=== PATIENT | male | born 1980 | race Caucasian/White ===

== ENCOUNTER 2022-10-30 07:40 | Outpatient (CLI) | payer OTHER, SELFPAY ==
[2022-10-30 10:36] LABS: Chloride* 104 mmol/L (96-114)
[2022-10-30 10:37] LABS: Albumin* 4.4 g/dL (3.3-5.0); Sodium* 139 mmol/L (135-149)
[2022-10-30 10:38] LABS: Potassium* 4.2 mmol/L (3.6-5.1)
[2022-10-30 10:40] LABS: Alanine Aminotransferase* 36 U/L (4-50); Alkaline Phosphatase* 72 U/L (40-150); Aspartate Amino Transferase* 30 U/L (12-35); Bilirubin Total* 0.8 mg/dL (0.1-1.5); Blood Urea Nitrogen* 15 mg/dL (5-24); Calcium* 9.2 mg/dL (8.4-10.6); Carbon Dioxide* 28 mmol/L (20-32); Cholesterol* 233 mg/dL (90-199); Creatinine* 0.9 mg/dL (0.5-1.5); Estimated Glomerular Filt Rate 109 ml/min; Glucose* 97 mg/dL (60-115); Total Protein* 7.1 g/dL (6.0-8.3); Triglycerides* 137 mg/dL (40-149)
[2022-10-30 10:41] LABS: HDL Cholesterol* 63 mg/dL (>=40); LDL Cholesterol Calculated 143 mg/dL (<100)
== END 2022-10-30 07:41 | disposition home or self-care (01) ==
LOC: NFLDREF 07:40
PROVIDERS: PCP Family Medicine; Visit Provider Family Medicine
DX: E78.5 Hyperlipidemia, unspecified (principal)
CPT/HCPCS: 80053; 80061

== ENCOUNTER 2023-04-01 10:05 | Outpatient (CLI) | payer OTHER, SELFPAY ==
--- NOTE | 2023-05-27 11:53 | PC.SOCIAL ---
Referral for Social work; Received social work referral from Janine James APRN at [facility]. Left message for provider to clarify referral. Provider not in today. Notes state that patient requests therapist listing. Contacted patient by phone and he confirmed that he would like listing of mental health providers for [facility]. Patient requested this be sent to him via his e-mail [email or web address]. Secure listing was e-mailed to patient. Patient had no other questions and will contact social work if needed. Social work to follow up as needed.
== END 2023-04-01 10:06 | disposition home or self-care (01) ==
LOC: NFLDREF 04-02 07:36
PROVIDERS: PCP Family Medicine; Referring Provider Family Medicine; Visit Provider Nurse Practitioner Family
DX: Z79.899 Other long term (current) drug therapy (principal)
CPT/HCPCS: 82306

== ENCOUNTER 2024-02-26 08:01 | Outpatient (CLI) | payer OTHER, SELFPAY ==
--- OUTSIDE RECORDS SUMMARY | 2024-02-29 20:57 | XMS_ITS | Clinical Summary ---
Author Organization [facility] Address [address], [place] [address] Care Team Providers Care Marionette Performer Name Role Phone Magadlena Nicole Ivana SCHAEFFER Primary Care Provider Source Comments You are receiving this document as you are listed as the primary care provider,follow-up provider, or the patient has been referred to you for consultation.This is in compliance with the Medicare and[facility] EHR Incentive Program,which states Providers who transition their patient to another setting of careor provider of care or refers their patient to another provider of care shouldprovide summary care record for each transition of care or referral. [facility] Allergies No known active allergies Medications Medication Sig Dispensed Refills Start Date End Date Status aspirin 325 MG tablet Take 650 mg by mouth once. Active Social History Tobacco Use Types Packs/Day Years Used Date Smoking Tobacco: Never Alcohol Use Standard Drinks/Week Comments Yes 0 (1 standard drink = 0.6 oz pur e alcohol) Sex and Gender Information Value Date Recorded Sex Assigned at Not on file Gender Identity Not on file Sexual Orientation Not on file Last Filed Vital Signs Vital Sign Reading Time Taken Comments Blood Pressure 114/73 10/28/2018 6:00 PM FILAMENT SHAPER Pulse 78 10/28/2018 6:15 PM FILAMENT SHAPER Temperature 36.7 ??C (98.1 ??F) 10/28/2018 5:00 PM CS T Respiratory Rate 13 10/28/2018 6:15 PM FILAMENT SHAPER Oxygen Saturation 96% 10/28/2018 6:15 PM FILAMENT SHAPER Inhaled Oxygen Concentration - - Weight - - Height - - Body Mass Index - - Plan of Treatment Health Maintenance Due Date Last Done Comments Hep C Screening (Preventive Services) 1979 HIV Screening (Preventive Services) 1995 Adult Preventive Visit 1997 HepB (1) 1998 Cholesterol 2014 DTaP/Tdap/Td (2 - Tdap) 03/11/2022 03/11/2012 COVID-19 Vaccine (3 - season) 2023 01/04/2021, 12/14/2020 Influenza (Season Ended) 2024 020, 08/10/2019, 08/18/2018, Additional history exists Zoster/Shingles (1 of 2) 2029 HPV Vaccine Aged Out No longer eligi ble based on patient's age to complete this topic HepA Aged Out No longer eligi ble based on patient's age to complete this topic Hib Aged Out No longer eligi ble based on patient's age to complete this topic IPV (Polio) Aged Out No longer eligi ble based on patient's age to complete this topic MCV4 Aged Out No longer eligi ble based on patient's age to complete this topic Pneumococcal Aged Out No longer eligi ble based on patient's age to complete this topic Care Teams Marionette Performer Relationship Specialty Start Date End Date Magdalena Nicole DO [address] [place] [address] PCP - General Family Practice 10/28/18
--- OUTSIDE RECORDS SUMMARY | 2024-02-29 20:57 | XMS_ITS | Clinical Summary ---
Author Organization [facility] Address [place], [place] [address] Care Team Providers Care Telecom Network Manager Name Role Phone Juan Yen MD Primary Care Provider [phone] Allergies No known active allergies Medications Medication Sig Dispensed Refills Start Date End Date Status escitalopram oxalate (LEXAPRO) 10 mg tablet 10/03/2021 Active Active Problems No known active problems Immunizations Name Administration Dates Next Due AMB Influenza, IIV4 PF (=>6 mos Flulaval,Fluzone Fluarix)(Flu Clinic Only) 08/10/2019,08/18/2018 COVID-19 vaccine ([employer] [facility] 30mcg/0.3mL) P KAY Gibson 08/20/2021 Influenza, IIV4 08/12/2017 Tdap 03/11/2012 Social History Tobacco Use Types Packs/Day Years Used Date Smoking Tobacco: Never Smokeless Tobacco: Never Tobacco Cessation:Counseling Given: Yes Alcohol Use Standard Drinks/Week Comments Yes 5 (1 standard drink = 0.6 oz pur e alcohol) PHQ-2 Answer Date Recorded PHQ-2 Score 0 11/16/2018 Social Connections Answer Date Recorded Frequency of Communication with Friends and Fami ly Not on file 10/29/2021 Financial Resource Strain Answer Date R ecorded Difficulty of Paying Living Expenses Not on file 10/29/2021 Difficulty of Paying Living Expenses Not on file 10/29/2021 Sex and Gender Information Value Date Recorded Sex Assigned at Not on file Gender Identity Not on file Sexual Orientation Not on file Obstetrics History Last Filed Vital Signs Vital Sign Reading Time Taken Comments Blood Pressure 108/72 10/29/2021 2:38 PM DIRECTOR REVENUE Pulse 74 10/29/2021 2:38 PM DIRECTOR REVENUE Temperature 39 ??C (102.2 ??F) 02/09/2019 4:16 PM CDT Respiratory Rate - - Oxygen Saturation 97% 10/29/2021 2:38 PM DIRECTOR REVENUE Inhaled Oxygen Concentration - - Weight 98.7 kg (217 lb 9.6 oz) 02/09/2019 4:16 P M CDT Height 182.9 cm (6') 02/09/2019 4:16 PM CDT Body Mass Index 29.51 02/09/2019 4:16 PM CDT Plan of Treatment Health Maintenance Due Date Last Done Comments HIV for age 15-65 1994 Hepatitis C screening for age 18-79 1997 Lipids for age 35-44 2014 Depression screening for age 12+ 04/20/2019 04/20/2018, 10/12/2015 BMI (ht and wt on same day) for age 18+ 02/10/2020 02/09/2019, 12/15/2016, 03/18/2016, Additional history exists Tetanus booster 03/11/2022 03/11/2012, 03/11/2012 COVID-19 vaccine series ( season) 2023 08/20/2021, 01/04/2021, 12/14/2020 Influenza for age 9-49 05/15/2024 9, 08/18/2018, 08/12/2017 Tdap Completed 03/11/2012 Pneumococcal series for age 6-64 Aged Out No longer eligible based on patient's age to complete this topic Care Teams Telecom Network Manager Relationship Specialty Start Date End Date Juan Yen MD [address] [place] [address] PCP - General Family Practice 10/29/21
== END 2024-02-26 08:02 | disposition home or self-care (01) ==
LOC: NFLDREF 02-29 20:56
PROVIDERS: PCP Family Medicine; Referring Provider Family Medicine; Visit Provider Family Medicine
DX: E78.5 Hyperlipidemia, unspecified (principal); E55.9 Vitamin D deficiency, unspecified; Z13.228 Encounter for screening for other metabolic disorders
CPT/HCPCS: 80053; 80061; 82306

== ENCOUNTER 2024-03-02 09:27 | Outpatient (CLI) | payer OTHER, SELFPAY ==
--- OUTSIDE RECORDS SUMMARY | 2024-03-02 09:30 | XMS_ITS | Clinical Summary ---
Author Organization [facility] Address [place], [place] [address] Care Team Providers Care Industrial Electrician Name Role Phone Juan Yen MD Primary Care Provider [phone] Allergies No known active allergies Medications Medication Sig Dispensed Refills Start Date End Date Status escitalopram oxalate (LEXAPRO) 10 mg tablet 10/03/2021 Active Active Problems No known active problems Immunizations Name Administration Dates Next Due AMB Influenza, IIV4 PF (=>6 mos Flulaval,Fluzone Fluarix)(Flu Clinic Only) 08/10/2019,08/18/2018 COVID-19 vaccine ([employer] 30mcg/0.3mL) P KAY Gibson 08/20/2021 Influenza, IIV4 [...] Comments Blood Pressure 108/72 10/29/2021 2:38 PM GENERATOR REBUILDER Pulse 74 10/29/2021 2:38 PM GENERATOR REBUILDER Temperature 39 ??C (102.2 ??F) 02/09/2019 4:16 PM CDT Respiratory Rate - - Oxygen Saturation 97% 10/29/2021 2:38 PM GENERATOR REBUILDER Inhaled Oxygen Concentration - - Weight 98.7 [...] age to complete this topic Care Teams Industrial Electrician Relationship Specialty Start Date End Date Juan Yen MD [address] [place] [address] PCP - General Family Practice 10/29/21
--- OUTSIDE RECORDS SUMMARY | 2024-03-02 09:30 | XMS_ITS | Clinical Summary ---
Author Organization [facility] Address [address], [place] [address] Care Team Providers Care Toy Department Manager Name Role Phone Magdalena Nicole Ivana SCHAEFFER Primary Care Provider Source Comments You are receiving this document as you are listed as the primary care provider,follow-up provider, or the patient has been referred to you for consultation.This is in compliance with the Medicare and[facility] EHR Incentive Program,which states Providers who transition their patient to another setting of careor provider of care or refers their patient to another provider of care shouldprovide summary care record for each transition of care or referral. [facility] Allergies No known active allergies Medications Medication [...] Comments Blood Pressure 114/73 10/28/2018 6:00 PM SEWING MACHINE ATTACHMENT TESTER Pulse 78 10/28/2018 6:15 PM SEWING MACHINE ATTACHMENT TESTER Temperature 36.7 ??C (98.1 ??F) 10/28/2018 5:00 PM CS T Respiratory Rate 13 10/28/2018 6:15 PM SEWING MACHINE ATTACHMENT TESTER Oxygen Saturation 96% 10/28/2018 6:15 PM SEWING MACHINE ATTACHMENT TESTER Inhaled Oxygen Concentration - - Weight - [...] age to complete this topic Care Teams Toy Department Manager Relationship Specialty Start Date End Date Magdalena Nicole DO [address] [place] [address] PCP - General Family Practice 10/28/18
== END 2024-03-02 09:28 | disposition home or self-care (01) ==
LOC: NFLDREF 09:28
PROVIDERS: PCP Family Medicine; Visit Provider Family Medicine
DX: R53.83 Other fatigue (principal)
CPT/HCPCS: 84443

== ENCOUNTER 2025-06-09 08:22 | Outpatient (CLI) | payer MEDICAID, SELFPAY | END 2025-06-09 08:23 | disposition home or self-care (01) | LOC: NFLDREF 06-12 07:46 | PROVIDERS: PCP Family Medicine; Referring Provider Family Medicine; Visit Provider Family Medicine | DX: E78.5 Hyperlipidemia, unspecified (principal); R53.83 Other fatigue; E55.9 Vitamin D deficiency, unspecified; F41.9 Anxiety disorder, unspecified; F32.9 Major depressive disorder, single episode, unspecified; Z79.899 Other long term (current) drug therapy; Z13.9 Encounter for screening, unspecified; Z13.1 Encounter for screening for diabetes mellitus | CPT/HCPCS: 80053; 80061; 82306; 84443 ==

== ENCOUNTER 2025-07-10 12:06 | Outpatient (CLI) | payer MEDICAID, SELFPAY ==
--- NOTE | 2025-07-10 13:25 | P.ANES_ITS ---
Anesthesia Charges Start Date/Time Anesthesia Start Date: 07/10/25 Anesthesia Start Time: 12:57 Stop Date/Time Anesthesia Stop Date: 07/10/25 Anesthesia Stop Time: 13:21 Coding CPT Codes CPT Codes: ANES LWR INTST NDSC NOS - [id number] ([id number]) P3 - PATIENT W/SEVERE SYS DISEASE, QK - CATERING DRIVER 2-4 CNCRNT ANES PROC, QX - BURNER TENDER SVC W/ MD MED DIRECTION
--- NOTE | 2025-07-10 13:25 | W.ANESCHARGE ---
Anesthesia Charges Start Date/Time Anesthesia Start Date: 07/10/25 Anesthesia Start Time: 12:57 Stop Date/Time Anesthesia Stop Date: 07/10/25 Anesthesia Stop Time: 13:21 Coding CPT Codes CPT Codes: ANES LWR INTST NDSC NOS - [id number] ([id number]) P3 - PATIENT W/SEVERE SYS DISEASE, QK - MANAGER BUSINESS INTELLIGENCE 2-4 CNCRNT ANES PROC, QX - APPEALS REPRESENTATIVE SVC W/ MD MED DIRECTION
--- NOTE | 2025-07-10 14:11 | P.ANES_ITS ---
Anesthesia Charges Start Date/Time Anesthesia Start Date: 07/10/25 Anesthesia Start Time: 12:57 Stop Date/Time Anesthesia Stop Date: 07/10/25 Anesthesia Stop Time: 13:21 Coding CPT Codes CPT Codes: ANES LWR INTST NDSC NOS - [id number] ([id number]) QK - WEIGH MACHINE OPERATOR 2-4 CNCRNT ANES PROC, QX - PRICING ACTUARY SVC W/ MED DIRECTION, P3 - PATIENT W/SEVERE SYS DISEASE
--- NOTE | 2025-07-10 14:11 | W.ANESCHARGE ---
Anesthesia Charges Start Date/Time Anesthesia Start Date: 07/10/25 Anesthesia Start Time: 12:57 Stop Date/Time Anesthesia Stop Date: 07/10/25 Anesthesia Stop Time: 13:21 Coding CPT Codes CPT Codes: ANES LWR INTST NDSC NOS - [id number] ([id number]) QK - CANAL EQUIPMENT MECHANIC 2-4 CNCRNT ANES PROC, QX - WARD SERVICE SUPERVISOR SVC W/ MED DIRECTION, P3 - PATIENT W/SEVERE SYS DISEASE
== END 2025-07-10 12:07 | disposition home or self-care (01) ==
LOC: OP CLINIC 12:07
PROVIDERS: PCP Family Medicine; Visit Provider Internal Medicine
DX: Z12.11 Encounter for screening for malignant neoplasm of colon (principal); D12.2 Benign neoplasm of ascending colon; D12.5 Benign neoplasm of sigmoid colon
CPT/HCPCS: 00811; 00812; 45380; 45385; 88305; J2704